=== PATIENT | female | born 1960 | race Caucasian/White ===

== ENCOUNTER 2019-05-13 17:23 | Emergency (ER) | payer BC ==
[~2019-05-13] VITALS: Ht 162.6 cm; Wt 112.0 kg
[2019-05-13 17:42] VITALS: Ht 162.6 cm; Wt 112.0 kg
[2019-05-13 20:55] VITALS: BP 150/82
== END 2019-05-13 20:55 | disposition home or self-care (01) ==
LOC: ED 17:23
DX: S32.049A Unspecified fracture of fourth lumbar vertebra, initial encounter for closed fracture (principal); Z98.890 Other specified postprocedural states; X58.XXXA Exposure to other specified factors, initial encounter; Y93.89 Activity, other specified; Y92.89 Other specified places as the place of occurrence of the external cause; Y99.8 Other external cause status
CPT/HCPCS: J1885